=== PATIENT | male | born 1965 | race Caucasian/White ===

== ENCOUNTER 2018-10-18 19:39 | Emergency (ER) | payer OTHER ==
[~2018-10-18] VITALS: Ht 170.2 cm; Wt 63.5 kg
[2018-10-18 21:27] VITALS: BP 122/79
[2018-10-18] MEDS ORDERED: PREDNISONE20 MG PO ×2 (21:31→22:46)
--- NOTE | 2018-10-18 22:25 | Diagnostic Imaging Report ---
History: Left Hand/shoulder pain and numbness Comparison studies: None Technique: Axial images were obtained through the cervical region. Coronal and sagittal images reconstructed from the axial data. Intravenous contrast: None Dose modulation, iterative reconstruction, and/or weight based adjustment of the mA/kV was utilized to reduce the radiation dose to as low as reasonably achievable. Findings: Atlantoaxial articulation: Mild degenerative changes without acute abnormality Alignment: Straightening of the normal lordosis. No scoliosis. Cervicomedullary junction: No abnormalities. Patent foramen magnum. Soft tissues: No gross abnormalities. Vertebrae: No fractures, neoplasm or infection. Degenerative changes: C2-C3: Patent spinal canal and foramina . C3-4: Patent spinal canal and foramina . C4-5: Patent spinal canal and foramina . C5-6: Decreased intervertebral space. Bilateral uncinate processes and facet hypertrophy results in mild canal stenosis and mild bilateral foraminal narrowing . C6-7: Decreased intervertebral space. Diffuse disc osteophyte complex, moderate right and mild left uncinate process hypertrophy results in mild canal stenosis, moderate right and mild left foraminal narrowing. C7-T1: Patent spinal canal and foramina . IMPRESSION: 1. 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 Mild degenerative bilateral foraminal narrowing at C5-6. 2. No acute spinal abnormality Signed by: DR Alexandru Hawthorne M.D. on 10/18/2018 10:22 PM
== END 2018-10-18 22:50 | disposition home or self-care (01) ==
LOC: ER 19:39
DX: G62.9 Polyneuropathy, unspecified (principal); F17.210 Nicotine dependence, cigarettes, uncomplicated
CPT/HCPCS: 72125; 99283